=== PATIENT | female | born 1985 | race Caucasian/White ===

== ENCOUNTER 2025-07-02 10:28 | Emergency (ER) | payer OTHER, SELFPAY ==
[2025-07-02 10:59] VITALS: BP 113/76; PULSE 78; RESP 16; TEMP 36.9; O2SAT 97; BMI 29.3
--- NOTE | 2025-07-02 11:10 | ED.GENADULT ---
HPI - General Adult General Chief complaint: Seizure Stated complaint: 3 SZ,NORMALLY HAS MORE PER PT Time Seen by Provider: 07/02/25 11:02 Source: patient and EMS Mode of arrival: EMS Limitations: no limitations History of Present Illness ED Provider: DR. Canada HPI narrative: 40-year-old female with history of seizure, anxiety patient stated that she has been taking Lamictal and clonazepam to control her symptoms, patient ran out of her clonazepaman appointment with her doctor on the to refill her prescription been getting multiple seizure patient stated that is stress trigger her seizure, patient had 3-4 seizures today that the patient remember well, no postictal confusion or urinary incontinence, patient has a full memory of her seizure and describe it as tonic-clonic seizures. Otherwise patient has no headache, no fall, no head injury, no neurological deficit, no SI, no HI, no hallucination. Related Data Previous Rx's ?Medication ?Instructions ?Recorded clonazepam 1 mg tablet (Klonopin) 1 mg PO BID PRN anxiety #14 tabs 07/02/25 Allergies Allergy/AdvReac Type Severity Reaction Status Date / Time No Known Allergies Allergy Verified 07/02/25 11:08 Review of Systems Review of Systems: All other systems are reviewed and are negative Constitutional: Reports as per HPI and Reports no additional constitutional complaints Eyes: Reports as per HPI and Reports no additional eye complaints Reports system reviewed and no additional complaints, except as documented Cardiovascular: Reports as per HPI and Reports no additional cardiovascular complaints Respiratory: Reports as per HPI and Reports no additional respiratory complaints Gastrointestinal: Reports as per HPI and Reports no additional gastrointestinal complaints Genitourinary: Reports no additional female genitourinary complaints Musculoskeletal: Reports no additional musculoskeletal complaints Skin/Breast: Reports system reviewed and no additional complaints, except as docu Psychiatric: Reports no additional psychiatric complaints Endocrine: Reports no additional endocrine complaints Hematologic/Lymphatic: Reports no additional hematologic/lymphatic complaints Allergic/Immunologic: Reports no additional allergic/immunologic complaints Reports system reviewed and no additional complaints, except as documented and Reports Abnormal speech present [facility] Social History Social History Advance Directives: No Advance Directives Information Provided: No Do you have a plan to hurt others: No Plan Physical Exam ED Vital Signs: Vital Signs - 24 hr 07/02/25 10:59 Temperature 98.4 F Pulse Rate 78 Respiratory Rate 16 Blood Pressure 113/76 Pulse Oximetry 97 Oxygen Delivery Method Room Air Nasal Cannula BMI result Body Mass Index 29.3 Vital signs have been reviewed and appear to be correct. Blood pressure elevated. Heart rate normal. Respiratory rate normal. Temperature normal. Oxygen saturation normal. Appearance: Alert. Oriented X3. No acute distress. Head: Normal external exam. Normocephalic. Atraumatic. No Davila signs noted. No raccoon eyes noted Eyes: PERRLA. EOMI. Conjunctiva and sclera normal. Eyelids normal. ENT: TM's Normal. Pharynx normal. Uvula midline. Moist mucous membranes. No trismus noted. No drooling noted. No muffled voice noted. Neck: Normal inspection. Neck supple. FROM. No adenopathy. Thyroid Normal. No meningeal signs. No neck mass noted. CVS: Normal heart rate and rhythm. Heart sound normal. No murmurs noted. Pulses normal throughout. Respiratory: No respiratory distress. Painless inspiration. Breath sounds normal. No wheezes/rales/rhonchi noted. Chest nontender. No accessory muscle usage noted or decreased air movement noted. Abdomen: Soft and nontender. Bowel sounds normal in all 4 quadrants. No distention noted. No organomegaly noted. No visible injury noted. Back: No CVA tenderness. Full range of motion noted. Skin: Skin warm and dry. Normal skin color. Normal skin turgor. No rashes/lesions/lacerations noted. Extremities: No lower extremity edema. Extremities exhibit normal range of motion. Extremities nontender. Neuro: Mental status: Normal attention, orientation, memory, and affect. Cranial nerves: Pupils are equal, round and reactive to light, EOMI, visual engle are fall, face is symmetric, facial sensations are normal. Motor examination normal muscle tone, strength to 4 extremities. DTR are +2, planter's are flexor. Sensory exam; normal coordination, no ataxia, gait stable. Cerebellar exam: Nlwxgm-il-qmph and togh-id-meka is normal. Extrapyramidal system: No tremors, no rigidity with normal facial expressions. 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 Patient need to follow-up with a neurologist to confirmed the questionable diagnosis of true seizure. Will prescribe clonazepam# 15 tablets until she sees her doctor on 07/13. Time: 13:31 Medications Administered Discontinued Medications Generic Name Dose Route Start Last Admin Trade Name Tobyq PRN Reason Stop Dose Admin Clonazepam 1 mg 07/02/25 11:13 07/02/25 11:25 Clonazepam 1 Mg Tablet PO 07/02/25 11:14 1 mg ONCE ONE Administration Medical Decision Making Differential Diagnosis Differential Diagnoses: The differential diagnosis associated with the presentation includes (Anxiety, pseudo-seizure, electrolyte derangement, severe anemia.) Admission/Observation Consideration of admission/observation: Escalation of care including admission/observation considered Lab Data MDM Lab Attestation statement: I reviewed the patient's lab results. 07/02/25 11:30 07/02/25 11:30 Labs: Lab Results 07/02/25 Range/Units 11:30 WBC 5.9 (4.8-10.8) X10*3/uL RBC 4.69 (4.20-5.50) X10*6/uL Hgb 12.0 (12.0-16.0) g/dl Hct 38.4 (37.0-47.0) % MCV 81.9 (80.0-98.0) fL MCH 25.6 L (27.0-33.0) pg MCHC 31.3 (31.0-35.0) g/dl RDW 16.1 H (11.0-16.0) % Plt Count 272 (160-400) X10*3/uL MPV 10.7 (9.4-12.3) fL Immature Gran % (Auto) 0.3 (0.0-0.4) % Neut % (Auto) 52.4 (45-73) % Lymph % (Auto) 32.5 (20-40) % Greer % (Auto) 12.4 H (2-11) % Eos % (Auto) 1.9 (0-4) % Baso % (Auto) 0.5 (0-2) % Lymph # (Auto) 1.9 (1.2-4.9) X10*3/uL Greer # (Auto) 0.7 (0.1-1.2) X10*3/uL Eos # (Auto) 0.1 (0.0-0.4) X10*3/uL Baso # (Auto) 0.0 (0.0-0.2) X10*3/uL Abs Immat Gran (auto) 0.02 (0.00-0.03) X10*3/uL Absolute Neuts (auto) 3.1 (2.0-8.3) x10*3/uL Absolute Nucleated RBC 0.000 (0.0-0.012) X10*3/uL Nucleated RBC % (auto) 0.0 (0.0-0.2) /100WBC Sodium 139 (135-145) mmol/L Potassium 4.5 (3.3-5.1) mmol/L Chloride 107 (96-108) mmol/L Carbon Dioxide 26 (22-29) mmol/L Anion Gap 11 L (12-20) BUN 10 (9-16) mg/dL Creatinine 0.71 (0.5-1.4) mg/dL Estim Creat Clear Calc 88.7 Estimated GFR > 60 Random Glucose 83 (60-115) mg/dL Calcium 9.4 (8.4-10.2) mg/dL Total Bilirubin 0.4 (0.0-1.0) mg/dL Direct Bilirubin 0.1 (0.0-0.5) mg/dL AST 28 (5-31) U/L ALT 17 (0-31) U/L Alkaline Phosphatase 89 (39-117) U/L Total Protein 7.2 (6.5-8.0) g/dL Albumin 4.8 (3.5-5.0) g/dL Lipase 15 (8-78) U/L Discharge Plan Discharge Clinical Impression: Anxiety Patient Disposition: Home, Self-Care Instructions: Anxiety (ED) Prescriptions: New clonazepam [Klonopin] 1 mg tablet 1 mg PO BID PRN (Reason: anxiety) Qty: 14 0RF Referrals: Niles Macdonald MD [Physician, Neurology] Print Language: Czech
[2025-07-02 11:35] LABS: MANUAL DIFF FLAG NO
[2025-07-02 11:36] LABS: Hematocrit 38.4 % (37.0-47.0); Hemoglobin 12.0 g/dl (12.0-16.0); Imm Gran Abs Auto 0.02 X10*3/uL (0.00-0.03); Imm Gran Pct Auto 0.3 % (0.0-0.4); Lymphocytes Absolute Auto 1.9 X10*3/uL (1.2-4.9); Mean Corpuscular HGB Conc 31.3 g/dl (31.0-35.0); Mean Corpuscular Hemoglobin 25.6 pg (27.0-33.0); Mean Corpuscular Volume 81.9 fL (80.0-98.0); NRBC Abs Auto 0.000 X10*3/uL (0.0-0.012); NRBC Pct Auto 0.0 /100WBC (0.0-0.2); Platelet Count 272 X10*3/uL (160-400); Red Blood Count 4.69 X10*6/uL (4.20-5.50); White Blood Count 5.9 X10*3/uL (4.8-10.8)
[2025-07-02 11:58] LABS: Alanine Aminotransferase 17 U/L (0-31); Albumin Level 4.8 g/dL (3.5-5.0); Alkaline Phosphatase 89 U/L (39-117); Anion Gap 11 (12-20); Aspartate Amino Transferase 28 U/L (5-31); Blood Urea Nitrogen 10 mg/dL (9-16); Calcium 9.4 mg/dL (8.4-10.2); Carbon Dioxide 26 mmol/L (22-29); Chloride 107 mmol/L (96-108); Creatinine Clr Calc Pharmacy 88.7; Estimated Glomerular Filt Rate > 60; Lipase 15 U/L (8-78); Potassium 4.5 mmol/L (3.3-5.1); Sodium 139 mmol/L (135-145); Total Protein 7.2 g/dL (6.5-8.0)
--- OUTSIDE RECORDS SUMMARY | 2025-07-02 13:58 | XMS_ITS | Clinical Summary ---
Author Organization [facility] Address [address] [place] [address] Phone Care Team Providers Care Loom Winder Tender Name Role Phone Ramez Dill Primary Care Provider [phone] Allergies Active Allergy Reactions Criticality Noted Date Comments Hydrocodone-Acetaminophen 10/23/2013 Morphine Nausea And Vomiting 10/23/2013 Medications No known medications Encounters Date Type Department Care Team Description 06/16/2025 6:56 PM EST - 06/17/2025 5:44 AM [facility] [address] [place] [phone] Jorge Corona MD Kokkinos, Erika, MD Psychogenic nonepileptic seizure (Primary Dx) Discharge Disposition: Home or Self Care 05/28/2025 7:29 PM EST - 05/28/2025 10:37 PM [facility] [address] [place] [phone] Maribel Butler MD Psychogenic nonepileptic seizure (Primary Dx) Discharge Disposition: Home or Self Care from Last 3 Months Surgical History Surgery Date Site/Laterality Comments ENDOMETRIAL FULGURATION November 2012 PROCEDURE:LAPAROSCOPIC ENDOMETRIOSIS FULGURATION Medical History Medical History Date Comments Migraines DX:Migraines Endometriosis DX:Endometriosis 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 PTSD (post-traumatic stress disorder) Adhd CRPS (complex regional pain syndrome) type I of lower limb Cervical lymphadenopathy GERD (gastroesophageal reflux disease) Psychogenic nonepileptic seizure Hypothyroid Insomnia Prolonged QT interval Social History Tobacco Use Types Packs/Day Years Used Date Smoking Tobacco: Never Tobacco Cessation:Counseling Given: Not Answered Alcohol Use Standard Drinks/Week Comments Not Currently 2 (1 standard drink = 0.6 oz pur e alcohol) Comments No Sex and Gender Information Value Date Recorded Sex Assigned at Not on file Legal Sex Female 12:31 AM EST Gender Identity Not on file Sexual Orientation Not on file Last Filed Vital Signs Vital Sign Reading Time Taken Comments Blood Pressure 100/59 06/17/2025 1:07 AM EST Pulse 87 06/17/2025 1:07 AM EST Temperature 37 C (98.6 F) 06/16/2025 7:18 PM EST Respiratory Rate 18 06/17/2025 1:07 AM EST Oxygen Saturation 96% 06/17/2025 1:07 AM EST Inhaled Oxygen Concentration - - Weight 59 kg (130 lb) 06/16/2025 7:18 PM EST Height 154.9 cm (5' 1 ) 06/16/2025 7:18 PM EST Body Mass Index 24.56 06/16/2025 7:18 PM EST Plan of Treatment Health Maintenance Due Date Last Done Comments Breast Cancer Screening 1983 DTaP,Tdap,and Td Vaccines (1 - Tdap) 2002 Hepatitis A Vaccines (1 of 2 - Risk 2-dose series) 2002 Hepatitis B Vaccines (1 of 3 - 19+ 3-dose series) 2002 Cervical Cancer Screening: Pap Smear 2004 HPV Vaccines (1 - 3-dose SCDM series) 2010 Depression Screening 07/05/2024 HIV Screening 11/07/2024 Social Influencers of Health Screening 11/07/2024 COVID-19 Vaccine ( season) 2025 11/01/2021, 11/23/2020 Influenza Vaccine (#1) 2025 , 08/30/2019, 05/19/2016 Hypertension/CHF/CAD Annual BMP Blood Test 06/16/2026 06/16/2025, 05/28/2025, 05/02/2025, Additional history exists Cholesterol Screening (Lipid Panel) 03/27/2030 03/27/2025, 11/01/2024, 09/08/2024 RSV Immunization Adult Patients (1 - 1-dose 75+ series) 2058 Pneumococcal Vaccine: Pediatrics (0 to 5 Years) and At-Risk Patients (6 to 49 Years) Aged Out 08/30/2019 No longer eligible based on patient's age to complete this topic Hepatitis C Screening Completed 04/05/2024 HIB Vaccines Aged Out No longer eligi ble based on patient's age to complete this topic IPV Vaccines Aged Out No longer eligi ble based on patient's age to complete this topic MMR Vaccines Aged Out No longer eligi ble based on patient's age to complete this topic Meningococcal ACWY Vaccine Aged Out N o longer eligible based on patient's age to complete this topic Meningococcal B Vaccine Aged Out No l onger eligible based on patient's age to complete this topic RSV Immunization Patients Under 20 months Aged Out No longer eligible based on patient's age to complete this topic Varicella Vaccines Aged Out No longer eligible based on patient's age to complete this topic Procedures Procedure Name Priority Date/Time Associated Diagnosis Comments ECG ANNOTATED 06/18/2025 ECG 12-LEAD STAT 06/16/2025 7:50 PM EST HCG, SERUM, QUALITATIVE STAT Add-on 06/16/2025 7:33 PM EST ETHANOL STAT Add-on 06/16/2025 7:33 PM EST CBC WITH AUTO DIFFERENTIAL STAT 06/16/2025 7:33 PM EST PROLACTIN STAT 06/16/2025 7:33 PM EST MAGNESIUM STAT 06/16/2025 7:33 PM EST BASIC METABOLIC PANEL STAT 06/16/2025 7:33 PM EST CBC AND DIFFERENTIAL STAT 06/16/2025 7:33 PM EST ECG ANNOTATED 05/29/2025 URINALYSIS WITH REFLEX MICROSCOPIC STAT 05/28/2025 8:34 PM EST CBC WITH AUTO DIFFERENTIAL STAT 05/28/2025 8:34 PM EST URINALYSIS WITH REFLEX MICROSCOPIC STAT 05/28/2025 8:34 PM EST BASIC METABOLIC PANEL STAT 05/28/2025 8:34 PM EST CBC AND DIFFERENTIAL STAT 05/28/2025 8:34 PM EST ECG 12-LEAD Routine 05/28/2025 7:48 PM EST from Last 3 Months Results * ECG-Annotated (06/18/2025) Only the most recent of2 resultswithin the time period is included. us Provider Onbase MD ECG ORDERABLES Final Result * ECG 12 lead (06/16/2025 7:50 PM EST) Only the most recent of2 resultswithin the time period is included. Ventricular Rate ECG 89 BPM GEMUSE Atrial Rate 89 BPM GEMUSE P-R Interval 142 ms GEMUSE QRS Duration 78 ms GEMUSE Q-T Interval 378 ms GEMUSE QTc 459 ms GEMUSE P Wave Elizabeth 56 degrees GEMUSE R Elizabeth 52 degrees GEMUSE T Elizabeth 66 degrees GEMUSE ECG Interpretation Normal sinus rhythm Normal ECG When compared with ECG of 28-MAY-2025 19:48, No significant change was found Confirmed by MD Davonte, Woodburn ([id number]) on 06/17/2025 11:38:20 PM GEMUSE 06/16/2025 7:50 PM EST 06/17/2025 11:38 PM EST Maribel CAREY ECG ORDERABLES Final Re sult GEMUSE * (ABNORMAL) CBC auto differential (06/16/2025 7:33 PM EST) Only the most recent of2 resultswithin the time period is included. WBC 8.2 4.8 - 10.8 K/[facility] LAB HEMETOLOGY METHOD 06/16/2025 8:14 PM EST [facility] RBC 4.30 3.80 - 4.80 M/mcL LAB HEMETOLOGY METHOD 06/16/2025 8:14 PM [facility] Hemoglobin 10.9(L) 11.5 - 16.0 g/dL LAB HEMETOLOGY METHOD 06/16/2025 8:14 PM [facility] Hematocrit 34.9(L) 35.0 - 47.0 % LAB HEMETOLOGY METHOD 06/16/2025 8:14 PM [facility] MCV 81.9 79.0 - 98.0 FL LAB HEMETOLOGY METHOD 06/16/2025 8:14 PM [facility] MCH 25.6(L) 27.0 - 32.0 pcg LAB HEMETOLOGY METHOD 06/16/2025 8:14 PM [facility] MCHC 31.2(L) 32.0 - 37.0 g/dL LAB HEMETOLOGY METHOD 06/16/2025 8:14 PM [facility] RDW 16.1(H) 11.0 - 15.0 % LAB HEMETOLOGY METHOD 06/16/2025 8:14 PM [facility] Platelets 252 130 - 400 K/mcL LAB HEMETOLOGY METHOD 06/16/2025 8:14 PM [facility] MPV 11.4(H) 7.0 - 11.0 FL LAB HEMETOLOGY METHOD 06/16/2025 8:14 PM [facility] NRBC 0.0 <1.0 % LAB HEMETOLOGY METHOD 06/16/2025 8:14 PM [facility] NRBC Absolute 0.00 <0.10 K/mcL LAB HEMETOLOGY METHOD 06/16/2025 8:14 PM [facility] Neutrophils Relative 46.5 % LAB HEMETOLOGY METHOD 06/16/2025 8:14 PM [facility] Lymphocytes Relative 36.7 % LAB HEMETOLOGY METHOD 06/16/2025 8:14 PM [facility] Monocytes Relative 12.5 % LAB HEMETOLOGY METHOD 06/16/2025 8:14 PM [facility] Eosinophils Relative 2.9 % LAB HEMETOLOGY METHOD 06/16/2025 8:14 PM [facility] Basophils Relative 0.4 % LAB HEMETOLOGY METHOD 06/16/2025 8:14 PM [facility] Immature Granulocytes Relative 1.0 % LAB HEMETOLOGY METHOD 06/16/2025 8:14 PM [facility] Neutrophils Absolute 3.81 1.50 - 7.00 K/mcL LAB HEMETOLOGY METHOD 06/16/2025 8:14 PM [facility] Lymphocytes Absolute 3.00 1.00 - 5.00 K/mcL LAB HEMETOLOGY METHOD 06/16/2025 8:14 PM [facility] Monocytes Absolute 1.02(H) 0.20 - 1.00 K/mcL LAB HEMETOLOGY METHOD 06/16/2025 8:14 PM [facility] Eosinophils Absolute 0.24 0.00 - 0.50 K/mcL LAB HEMETOLOGY METHOD 06/16/2025 8:14 PM [facility] Basophils Absolute 0.03 0.00 - 0.20 K/mcL LAB HEMETOLOGY METHOD 06/16/2025 8:14 PM [facility] Immature Granulocytes Absolute 0.08(H) 0.00 - 0.03 K/mcL LAB HEMETOLOGY METHOD 06/16/2025 8:14 PM [facility] Blood Venous blood specimen / Unknown Venipuncture / Unknown 06/16/2025 7:33 PM EST 06/16/2025 7:54 PM EST Maribel CAREY LAB BLOOD ORDERABLES Fin al Result [facility] [address] [place] [address], [place] [phone] * Prolactin (06/16/2025 7:33 PM EST) [facility] Prolactin 15.00 See Comment ng/mL 06/16/2025 8:22 PM EST [facility] Blood Venous blood specimen / Unknown Venipuncture / Unknown 06/16/2025 7:33 PM EST 06/16/2025 7:54 PM EST Narrative [facility] - 06/16/2025 8:22 PM EST Prolactin Female Reference Ranges (ng/mL): Non: 2.8 - 29.2 : 9.7 - >200.0 Postmenopausal: 1.8 - 20.3 Maribel CAREY LAB BLOOD ORDERABLES Fin al Result Performing Organization Address [facility]/ZIP Co de Phone Number [facility] [address] [place] [address], [place] [phone] * hCG, serum, qualitative (06/16/2025 7:33 PM EST) [facility] hCG Qual Negative Negative 06/16/2025 8:22 PM EST [facility] Blood Venous blood specimen / Unknown Venipuncture / Unknown 06/16/2025 7:33 PM EST 06/16/2025 7:54 PM EST Jorge Corona MD LAB BLOOD ORDERABLES Jill l Result [facility] [address] [place] [address], [place] [phone] * Magnesium (06/16/2025 7:33 PM EST) [facility] Magnesium 1.9 1.9 - 2.6 mg/dL 06/16/2025 8:18 PM EST [facility] Blood Venous blood specimen / Unknown Venipuncture / Unknown 06/16/2025 7:33 PM EST 06/16/2025 7:54 PM EST Maribel CAREY LAB BLOOD ORDERABLES Fin al Result Performing Organization Address City/[facility]/ZIP Co de Phone Number [facility] [address] [place] [address], [place] [phone] * Ethanol (06/16/2025 7:33 PM EST) Ethanol Level <3 0 - 10 mg/dL 06/16/2025 8:20 PM [facility] Blood Venous blood specimen / Unknown Venipuncture / Unknown 06/16/2025 7:33 PM EST 06/16/2025 7:54 PM EST Jorge Coorna MD LAB BLOOD ORDERABLES Jill l Result Performing Organization Address City/[facility]/ZIP Co de Phone Number [facility] [address] [place] [address], [place] [phone] * Basic metabolic panel (06/16/2025 7:33 PM EST) Only the most recent of2 resultswithin the time period is included. Sodium 137 133 - 145 mmol/L 06/16/2025 8:18 PM [facility] Potassium 4.7 3.5 - 5.5 mmol/L 06/16/2025 8:18 PM [facility] Chloride 102 96 - 110 mmol/L 06/16/2025 8:18 PM [facility] CO2 27 21 - 32 mmol/L 06/16/2025 8:18 PM [facility] Anion Gap 8 3 - 11 06/16/2025 8:18 PM [facility] Glucose 85 70 - 100 mg/dL 06/16/2025 8:18 PM [facility] BUN 9 5 - 25 mg/dL 06/16/2025 8:18 PM [facility] Creatinine 0.87 0.50 - 1.10 mg/dL 06/16/2025 8:18 PM [facility] eGFR 86 >=60 mL/min/1. 73m2 06/16/2025 8:18 PM [facility] Comment:Calculation based on the Chronic Kidney Disease Epidemiology Collaboration (CKD-EPI) equation refit without adjustment for race. BUN/Creatinine Ratio 10.3 06/16/2025 8:18 PM [facility] Calcium 9.1 8.5 - 10.5 mg/dL 06/16/2025 8:18 PM [facility] Blood Venous blood specimen / Unknown Venipuncture / Unknown 06/16/2025 7:33 PM EST 06/16/2025 7:54 PM EST us Maribel CAREY LAB BLOOD ORDERABLES Fin al Result [facility] [address] [place] [address], * Urinalysis with reflex microscopic (05/28/2025 8:34 PM EST) Specific [place] Urine 1.008 1.003 - 1.030 LAB URINALYSIS - AUTOMATED METHOD 05/28/2025 9:05 PM [facility] pH, Urine 7.0 5.0 - 8.0 pH LAB URINALYSIS - AUTOMATED METHOD 05/28/2025 9:05 PM [facility] Leukocytes, Urine Negative Negative LAB URINALYSIS - AUTOMATED METHOD 05/28/2025 9:05 PM [facility] Nitrite, Urine Negative Negative LAB URINALYSIS - AUTOMATED METHOD 05/28/2025 9:05 PM [facility] Protein, Urine Negative <=Trace mg/dL LAB URINALYSIS - AUTOMATED METHOD 05/28/2025 9:05 PM [facility] Glucose, Urine Negative Negative mg/dL LAB URINALYSIS - AUTOMATED METHOD 05/28/2025 9:05 PM [facility] Ketones, Urine Negative Negative mg/dL LAB URINALYSIS - AUTOMATED METHOD 05/28/2025 9:05 PM [facility] Urobilinogen, Urine 0.2 0.2 - 1.0 mg/dL LAB URINALYSIS - AUTOMATED METHOD 05/28/2025 9:05 PM [facility] Bilirubin, Urine Negative Negative LAB URINALYSIS - AUTOMATED METHOD 05/28/2025 9:05 PM [facility] Blood, Urine Negative Negative LAB URINALYSIS - AUTOMATED METHOD 05/28/2025 9:05 PM [facility] Urine Urine specimen obtained by clean catch procedure / Unknown Non-blood Collection / Unknown 05/28/2025 8:34 PM EST 05/28/2025 9:00 PM EST Maribel Butler MD LAB URINE ORDERABLES Final Resul t [facility] [address] [place] [address], from Last 3 Months Insurance [facility] MEDICAID ADVANTAGE Care Teams Loom Winder Tender Relationship Specialty Start Date End Date [facility]amez [facility]ill [facility] [place] [phone] PCP - General Family Medicine 05/28/25
--- OUTSIDE RECORDS SUMMARY | 2025-07-02 13:58 | XMS_ITS | Clinical Summary ---
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 ARIPiprazole (Abilify) 5 mg tablet Take 5 mg by mouth once a day. Active clonazePAM (KlonoPIN) 1 mg tablet Take 1 mg by mouth 2 times a day. Active cloNIDine (CATAPRES) 0.2 mg tablet Take 0.2 mg by mouth 2 times a day. Active dextroamphetami ne-amphetamine (ADDERALL) 10 mg tablet Take 10 mg by mouth once a day. Active hydrOXYzine HCL (ATARAX) 25 mg tablet Take 50 mg by mouth once a day. Active hydrOXYzine (VISTARIL) 25 mg capsule Take 50 mg by mouth 3 times a day as needed for itching. Active lamoTRIgine (LaMICtal) 100 mg tablet Take 100 mg by mouth once a day. Active levothyroxine (SYNTHROID, LEVOTHROID) 25 mcg tablet Take 25 mcg by mouth daily. Active nicotine polacrilex (NICORETTE) [address] 2 mg between cheek and gums as needed for nicotine cravings. Active Social History Tobacco Use Types Packs/Day Years Used Date Smoking Tobacco: Every Day Cigarettes Smokeless Tobacco: Never Tobacco Cessation:Ready to Q uit: Not Asked; Counseling Given: Not Answered Alcohol Use Standard Drinks/Week Comments Not Currently 0 (1 standard drink = 0.6 oz pur e alcohol) Comments Unknown Sex and Gender Information Value Date Recorded Sex Assigned at Female 05/02/2025 1:51 PM EDT Legal Sex Female 1:09 PM EDT Gender Identity Not on file Sexual Orientation Not on file Last Filed Vital Signs Vital Sign Reading Time Taken Comments Blood Pressure 114/58 05/03/2025 8:33 AM EDT Pulse 76 05/03/2025 8:33 AM EDT Temperature 36.7 C (98.1 F) 05/02/2025 6:33 PM EDT Respiratory Rate 16 05/03/2025 8:33 AM EDT Oxygen Saturation 95% 05/03/2025 12:46 AM EDT Inhaled Oxygen Concentration - - Weight 54.4 kg (120 lb) 05/02/2025 1:12 PM EDT Height - - Body Mass Index - - Plan of Treatment Health Maintenance Due Date Last Done Comments Cervical Cancer Screening 1983 HIV Screening 1983 HPV and Pap Smear 1983 Pap Smear 1983 Varicella Vaccines (1 of 2 - 13+ 2-dose series) 1996 Hepatitis B Vaccines (1 of 3 - 19+ 3-dose series) 2002 DTaP,Tdap,and Td Vaccines (1 - Tdap) 2005 Mammogram 2023 Alcohol/Substance Use Screening 07/05/2024 Influenza Vaccine (#1) 2025 COVID-19 Vaccine (1 - 2024-2 6 season) 2025 Pneumococcal Vaccine: Pediat olivia (0-5 Years) and At-Risk Patients (6-50 Years) Aged Out No longer eligible b ased on patient's age to complete this topic Procedures * Due to [place] state law, this organization might not be sharing negative HIV tests. Procedure Name Priority Date/Time Associated Diagnosis Comments RAPID COVID-19 RNA FOR SURVEILLANCE (ED ONLY) STAT 05/02/2025 9:24 PM EDT RED TOP Routine 05/02/2025 2:34 PM EDT RAINBOW DRAW Routine 05/02/2025 2:34 PM EDT MAGNESIUM STAT 05/02/2025 2:34 PM EDT BASIC METABOLIC PANEL STAT 05/02/2025 2:34 PM EDT CBC AUTO DIFFERENTIAL STAT 05/02/2025 2:34 PM EDT YELLOW TOP Routine 05/02/2025 2:15 PM EDT YELLOW TOP Routine 05/02/2025 2:15 PM EDT YELLOW TOP Routine 05/02/2025 2:15 PM EDT EXTRA TUBES Routine 05/02/2025 2:15 PM EDT POCT HCG, URINE STAT 05/02/2025 1:57 PM EDT ANDREWS TOP, URN STAT 05/02/2025 1:46 PM EDT UA/CULTURE REFLEX STAT 05/02/2025 1:4 6 PM EDT URINALYSIS W/REFLEX TO MICROSCOPIC & CULTURE STAT 05/02/2025 1:46 PM EDT from Last 3 Months Results * Due to [place] state law, this organization might not be sharing negative HIV tests. * Rapid COVID-19 RNA for Surveillance (05/02/2025 9:24 PM EDT) Pathologist [facility] PCR, SARS CoV-2 RNA Not Detected Not Detected CEPHEID GENEXPERT 05/02/2025 10:28 PM EDT [facility] Comment:A Not Detected (Nega tive) test result is indicative of the absence of SARS-CoV-2 RNA at the level of LoD (Limit of Detection). A negative result does not rule out the possibility of COVID-19 and should not be used as the sole basis for treatment or patient management decisions. If COVID-19 is still suspected, based on exposure history together with other clinical findings, re-testing should be considered. Swab (Nares) Non-Blood Collection / Unknown 05/02/2025 9:24 PM EDT 05/02/2025 9:29 PM EDT Narrative [facility] - 05/02/2025 10:28 PM EDT This test was developed, validated and its performance characteristics determined by [facility]. This test has not been cleared or approved by the U.S. Food and Drug Administration (FDA). FDA Policy for Diagnostic Tests for Coronavirus Disease-2019 during the Public Health Emergency issued September 18, 2019, is followed. us Alyson Torres MD LAB BODY FLUIDS AND STOOLS ORDERABLES Final Result [facility] [address] [place] [address], * (ABNORMAL) CBC Auto Differential (05/02/2025 2:34 PM EDT) WBC 8.4 3.8 - 10.8 10*3/uL 05/02/2025 2:47 PM EDT [facility] RBC 4.49 3.80 - 5.10 10*6/uL 05/02/2025 2:47 PM EDT [facility] Hemoglobin 11.3(L) 11.7 - 15.5 g/dL 05/02/2025 2:47 PM EDT [facility] Hematocrit 35.7 35.0 - 45.0 % 05/02/2025 2:47 PM EDT [facility] MCV 79.5(L) 80.0 - 100.0 fL 05/02/2025 2:47 PM EDT [facility] MCH 25.2(L) 27.0 - 33.0 pg 05/02/2025 2:47 PM EDT [facility] MCHC 31.7(L) 32.0 - 36.0 g/dL 05/02/2025 2:47 PM EDT [facility] RDW 15.8(H) 11.0 - 15.0 % 05/02/2025 2:47 PM EDT [facility] Platelets 268 140 - 400 10*3/uL 05/02/2025 2:47 PM EDT [facility] MPV 10.8 7.5 - 12.5 fL 05/02/2025 2:47 PM EDT [facility] Neutrophil % 64.8 % 05/02/2025 2:47 PM EDT [facility] Immature Grans % 0.5 0.0 - 0.9 % 05/02/2025 2:47 PM EDT [facility] Lymphocyte % 24.2 % 05/02/2025 2:47 PM EDT [facility] Monocyte % 9.6 % 05/02/2025 2:47 PM EDT [facility] Eosinophil % 0.5 % 05/02/2025 2:47 PM EDT [facility] Basophil % 0.4 % 05/02/2025 2:47 PM EDT [facility] Neutrophil # 5.42 1.50 - 7.80 10*3/uL 05/02/2025 2:47 PM EDT [facility] Immature Grans # 0.04(H) <=0.03 10*3/uL 05/02/2025 2:47 PM EDT [facility] Lymphocyte # 2.00 0.85 - 3.90 10*3/uL 05/02/2025 2:47 PM EDT [facility] Monocyte # 0.80 0.20 - 0.95 10*3/uL 05/02/2025 2:47 PM EDT [facility] Eosinophil # <0.03 0.02 - 0.50 10*3/uL 05/02/2025 2:47 PM EDT [facility] Basophil # <0.03 0.00 - 0.20 10*3/uL 05/02/2025 2:47 PM EDT [facility] nRBC % 0.0 /100 WBCs 05/02/2025 2:47 PM EDT [facility] nRBC # <0.01 <0.01 10*3/uL 05/02/2025 2:47 PM EDT [facility] Blood Structure of peripheral vein / Unknown Venipuncture / Unknown 05/02/2025 2:34 PM EDT 05/02/2025 2:40 PM EDT Alyson Torres MD LAB BLOOD ORDERABLES Final Result Performing Organization Address City/[facility]/ZIP Co de Phone Number [facility] [address] [place] [address], [place] * Red Top (05/02/2025 2:34 PM EDT) Extra Tube Hold for add-ons. 05/02/2025 7:05 PM EDT [facility] Comment:Auto resulted. Blood Structure of peripheral vein / Unknown Venipuncture / Unknown 05/02/2025 2:34 PM EDT 05/02/2025 2:40 PM EDT Alyson Torres MD LAB BLOOD ORDERABLES Final Result Performing Organization Address City/[facility]/ZIP Co de Phone Number [facility] [address] [place] [address], [place] * Magnesium (05/02/2025 2:34 PM EDT) MG 2.0 1.6 - 2.4 mg/dL 05/02/2025 3:19 PM EDT [facility] Blood Structure of peripheral vein / Unknown Venipuncture / Unknown 05/02/2025 2:34 PM EDT 05/02/2025 2:40 PM EDT us Alyson J Brian MD LAB BLOOD ORDERABLES Final Result [facility] [address] [place] [address], * (ABNORMAL) BMP - Basic Metabolic Panel (05/02/2025 2:34 PM EDT) NA 140 135 - 145 mmol/L 05/02/2025 3:19 PM EDT [facility] K 4.8 3.5 - 5.3 mmol/L 05/02/2025 3:19 PM EDT [facility] Cl 105 97 - 110 mmol/L 05/02/2025 3:19 PM EDT [facility] CO2 25 22 - 32 mmol/L 05/02/2025 3:19 PM EDT [facility] BUN 11 7 - 23 mg/dL 05/02/2025 3:19 PM EDT [facility] Creatinine 0.82 0.50 - 1.20 mg/dL 05/02/2025 3:19 PM EDT [facility] Glucose 108(H) 65 - 99 mg/dL 05/02/2025 3:19 PM EDT [facility] Calcium 8.6 8.6 - 10.5 mg/dL 05/02/2025 3:19 PM EDT [facility] Anion Gap 10 5 - 15 05/02/2025 3:19 PM EDT [facility] eGFR >90 >=60 mL/min/1. 73m2 05/02/2025 3:19 PM EDT [facility] Comment:The estimated glomer ular filtration rate (eGFR) is calculated using a new formula developed by the NKF-ASN task force to eliminate race-based correction factors. The new formula uses serum/plasma creatinine, age, and gender to determine eGFR. A value below 60mls/min might indicate kidney disease and will be flagged. For additional information, see Kam et al, Am J Kidney Dis. 2021;79(2):268- 288, A Unifying Approach for GFR estimation: Recommendations of the NKF-ASN Task Force on Reassessing the Inclusion of Race in Diagnosing Kidney Disease . Blood Structure of peripheral vein / Unknown Venipuncture / Unknown 05/02/2025 2:34 PM EDT 05/02/2025 2:40 PM EDT Alyson Torres MD LAB BLOOD ORDERABLES Final Result Performing Organization Address City/[facility] Co de Phone Number [facility] [address] [place] [address], * Yellow Top (05/02/2025 2:15 PM EDT) Only the most recent of3 resultswithin the time period is included. Extra Tube Hold for add-ons. 05/02/2025 7:05 PM EDT [facility] Comment:Auto resulted. Urine Urine specimen collection, clean catch / Unknown 05/02/2025 2:15 PM EDT 05/02/2025 2:15 PM EDT Alyson Torres MD LAB BLOOD ORDERABLES Final Result Performing Organization Address [facility] de Phone Number [facility] [address] [place] [id number], * POCT HCG, Urine, non-interfaced (05/02/2025 1:57 PM EDT) Control band present? Yes Background Clear? Yes Preg Test, Ur Negative Negative Urine 05/02/2025 1:57 PM EDT Alyson Torres MD POINT OF CARE TEST ORDERABL ES Final Result * Andrews Top, Urine (05/02/2025 1:46 PM EDT) Extra Tube Hold for add-ons. 05/02/2025 6:05 PM EDT [facility] Comment:Auto resulted. Urine Urine specimen collection, clean catch / Unknown Non-Blood Collection / Unknown 05/02/2025 1:46 PM EDT 05/02/2025 2:02 PM EDT us Alyson Torres MD LAB URINE ORDERABLES Final Result [facility] [address] [place] [address], [place] * Urinalysis W/Reflex to Microscopic & Culture (05/02/2025 1:46 PM EDT) Color, Urine Colorless Colorless, Light Yellow, Yellow, Dark Yellow 05/02/2025 2:11 PM EDT [facility] Clarity, Urine Clear Clear 05/02/2025 2:11 PM EDT [facility] Specific Nelson, Urine 1.006 <1.030 05/02/2025 2:11 PM EDT [facility] pH, Urine 6.0 4.6 - 8.0 05/02/2025 2:11 PM EDT [facility] Protein, Urine Negative Negative 05/02/2025 2:11 PM EDT [facility] Glucose, Urine Normal Normal 05/02/2025 2:11 PM EDT [facility] Ketones, Urine Negative Negative 05/02/2025 2:11 PM EDT [facility] Bilirubin, Urine Negative Negative 05/02/2025 2:11 PM EDT [facility] Blood, Urine Negative Negative 05/02/2025 2:11 PM EDT [facility] Nitrite, Urine Negative Negative 05/02/2025 2:11 PM EDT [facility] Urobilinogen, Urine Normal Normal 05/02/2025 2:11 PM EDT [facility] Leukocyte Esterase, Urine Negative Negative 05/02/2025 2:11 PM EDT [facility] Urine Urine specimen collection, clean catch / Unknown Non-Blood Collection / Unknown 05/02/2025 1:46 PM EDT 05/02/2025 2:02 PM EDT us Alyson Torres MD LAB URINE ORDERABLES Final Result [facility] [address] [place] [address], [place] from Last 3 Months Insurance [facility] MEDICAID Care Teams 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
[2025-07-02 14:26] VITALS: BP 101/59; PULSE 73; RESP 13; TEMP 36.7; O2SAT 96
[2025-07-02 14:42] VITALS: BP 101/59; PULSE 73; RESP 13; TEMP 36.7; O2SAT 96
== END 2025-07-02 14:43 | disposition home or self-care (01) ==
PROVIDERS: Emergency Provider Emergency Medicine; PCP Family Medicine
DX: F41.1 Generalized anxiety disorder (principal); R56.9 Unspecified convulsions; F43.0 Acute stress reaction; F43.9 Reaction to severe stress, unspecified; Z79.899 Other long term (current) drug therapy
CPT/HCPCS: 36415; 80048; 80076; 83690; 85025; 99284